=== PATIENT | male | born 1985 | race Caucasian/White ===

== ENCOUNTER 2016-12-14 10:36 | Observation (INO) | payer MEDICAID ==
[2016-12-14] MEDS ORDERED: LR 1,000 ML IV ONE (13:26)
[2016-12-14] MEDS ORDERED: LIDOCAINE 1% 2 ML INJ ID PRN (13:26)
[2016-12-14] MEDS ORDERED: BUPIVACAINE/EPI 0.25% 30 ML SDV ONE (14:00)
[2016-12-14] MEDS ORDERED: MIDAZOLAM 2 MG/2 ML VIAL ONE (14:05)
[2016-12-14] MEDS ORDERED: MIDAZOLAM 2 MG/2 ML VIAL IVP ONE (14:08)
--- NOTE | 2016-12-14 14:11 | PDANEPAE ---
ANE Past Medical History - Cardiovascular History Hx Hypertension: No Hx Arrhythmias: No Hx Chest Pain: No Hx Coronary Artery / Peripheral Vascular Disease: No Hx CHF / Valvular Disease: No Hx Palpitations: No - Pulmonary History Hx COPD: No Hx Asthma/Reactive Airway Disease: No Hx Recent Upper Respiratory Infection: No Hx Oxygen in Use at Home: No Hx Sleep Apnea: Yes Sleep Apnea Screening Result - Last Documented: Positive Pulmonary History Comment: james positive does not use cpap or o2 - Neurologic History Hx Cerebrovascular Accident: No Hx Seizures: No Hx Dementia: No - Endocrine History Hx Diabetes: No - Renal History Hx Renal Disorders: No - Liver History Hx Hepatic Disorders: No - Neurological & Psychiatric Hx Hx Neurological and Psychiatric Disorders: Yes Neurological / Psychiatric History Comment: anxiety - Cancer History Hx Cancer: No - Congenital Disorder History Hx Congenital Disorders: No - GI History Hx Gastrointestinal Disorders: No - Other Health History Other Health History: none - Chronic Pain History Chronic Pain: No - Surgical History Prior Surgeries: hydrocele repair. unknown surgery when he was younger ANE Review of Systems - Exercise capacity METS (RN): 4 METS ANE Patient History - Allergies Allergies/Adverse Reactions: No Known Allergies Allergy (Verified 12/12/16 13:01) - Home Medications Home Medications: ALPRAZolam [Xanax 0.5 MG (*)] 0.5 mg PO HS 11/23/16 [Last Taken 12/13/16 23:00] Herbals/Supplements -Info Only 1 ea PO DAILY 11/23/16 [Last Taken 12/13/16] Ibuprofen [Motrin (*)] 200 mg PO DAILY PRN 11/23/16 [Last Taken 3 Weeks Ago] - NPO status NPO Since - Liquids (Date): 12/14/16 NPO Since - Liquids (Time): 11:30 NPO Since - Solids (Date): 12/13/16 NPO Since - Solids (Time): 19:00 - Smoking Hx Smoking Status: Light smoker - Family Anes Hx Family Hx Anesthesia Complications: none ANE Labs/Vital Signs - Vital Signs Blood Pressure: 140/92 Heart Rate: 88 Respiratory Rate: 20 O2 Sat (%): 94 Height: 185.42 cm Weight: 85.275 kg ANE Physical Exam - Airway Neck exam: FROM Mallampati Score: Class 2 Mouth exam: poor dentition (Chipped lower right incisor) - Pulmonary Pulmonary: no respiratory distress, no rales or rhonchi - Cardiovascular Cardiovascular: regular rate and rhythym, no murmur, rub, or gallop - ASA Status ASA Status: II ANE Anesthesia Plan Anesthesia Plan: general endotracheal anesthesia
[2016-12-14] MEDS ORDERED: HYDROmorphONE/DILAUDID 2 MG/ML INJ ONE (14:22)
[2016-12-14] MEDS ORDERED: fentaNYL 100 MCG/2 ML INJ ONE ×2 (14:22→16:18)
--- NOTE | 2016-12-14 14:22 | PDGENHP ---
History & Physical Chief Complaint: HUONG History of Present Illness: Adenotonsillar hypertrophy, lingual tonsilar hypertrophy, HUONG Pertinent Past, Social, Family History: Reviewed Relevant Physical Exam: Alert, NAD. Patent Nares. Tonsular hypertrophy. Neck supple Cardiorespiratory Assessment: RR. CTA. Good for UPPP, BOT, Adenoidectomy
[2016-12-14] MEDS ORDERED: LIDOCAINE 2% 5 ML SDV ONE (14:23)
[2016-12-14] MEDS ORDERED: SUCCINYLCHOLINE CHLORIDE*ANESTHESIA ONLY*200 MG/10 ML SYR IVP ONE (14:23)
[2016-12-14] MEDS ORDERED: DEXAMETHASONE 4 MG/ML VIAL ONE ×3 (14:23→14:35)
[2016-12-14] MEDS ORDERED: PROPOFOL 200 MG/20 ML VIAL ONE ×2 (14:23→14:37)
[2016-12-14] MEDS ORDERED: ONDANSETRON 4 MG/2 ML VIAL ONE (14:23)
--- NOTE | 2016-12-14 16:12 | POSTOPPROG ---
Post Op Note Date of Operation: 12/14/16 Surgeon: Judson Krishnamurthy Anesthesiologist: Kevin Anesthesia: GET(General Endotracheal) Pre-op Diagnosis: HUONG Post-op Diagnosis: HUONG Indication: HUONG Procedure: Lingual tonsillectomy, UPPP, tonsillectomy, adenoidectomy Findings: Ling tons hyperplasia, Adenotonsillar hypertrophy Inf/Abcess present in the surg proc area at time of surgery?: No Depth: Deep Incisional (Fascial) EBL: Minimal Complications: NONE Specimen(s): Tonsils
[2016-12-14] MEDS ORDERED: ONDANSETRON 4 MG/2 ML VIAL IVP PRN ×2 (16:13→16:17)
[2016-12-14] MEDS ORDERED: ENALAPRILAT DIHYDRATE 1.25 MG/ML VIAL IVP PRN (16:17)
[2016-12-14] MEDS ORDERED: NALOXONE HCL 0.4 MG/ML INJ IVP PRN (16:17)
[2016-12-14] MEDS ORDERED: HYDROmorphONE/DILAUDID 1 MG/ML SYR IVP PRN (16:17)
[2016-12-14] MEDS ORDERED: LR 500 ML IV PRN (16:17)
[2016-12-14] MEDS ORDERED: OXYCODONE/APAP 5/325 TAB PO PRN (16:17)
[2016-12-14] MEDS ORDERED: LABETALOL HCL 50 MG/10 ML SYR IVP PRN (16:17)
[2016-12-14] MEDS ORDERED: PROMETHAZINE HCL 25 MG/ML INJ IVP PRN (16:17)
[2016-12-14] MEDS ORDERED: HYDROCODONE/APAP 5/325 TAB PO PRN (16:17)
[2016-12-14] MEDS ORDERED: MEPERIDINE 25 MG/ML SYR IVP PRN (16:17)
[2016-12-14] MEDS ORDERED: ACETAMINOPHEN 500 MG TAB PO PRN (16:17)
[2016-12-14] MEDS ORDERED: HYDROmorphONE/DILAUDID 1 MG/ML SYR ONE (16:18)
[2016-12-14] MEDS: fentaNYL 100 MCG/2 ML INJ IVP PRN ×2 (16:20→16:34)
--- NOTE | 2016-12-14 16:23 | POSTANESTH ---
Post Anesthetic Evaluation Cardiovascular Status: Tx Hyper/Hypo-tension Respiratory Status: Normal, Stable, Similar to Pre-op Cond. Level of Consciousness/Mental Status: Can Participate in Eval, Mildly Sleepy, Arousable Pain Control: Inadeq, Add Tx Required (Resting, but reports pain when asked.) Nausea/Vomiting Control: Adequate, Prn Tx Ordered Complications Possibly Related to Anesthesia: None Noted
[2016-12-14] MEDS: D5W 1/2 NS 1,000 ML IV SCH (18:12)
[2016-12-14] MEDS: HYDROCOD/APAP 7.5/325 IN 15ML UDCUP PO PRN ×2 (19:44→23:36)
[2016-12-14] MEDS: HEPARIN 5,000 UNIT/0.5 ML SYR SC SCH (21:53)
[2016-12-15] MEDS ORDERED: ALPRAZolam 0.25 MG TAB PO SCH ×2 (00:45→21:00)
[2016-12-15] MEDS: HYDROCOD/APAP 7.5/325 IN 15ML UDCUP PO PRN ×3 (03:49→12:48)
[2016-12-15] MEDS: D5W 1/2 NS 1,000 ML IV SCH (03:52)
[2016-12-15] MEDS: HEPARIN 5,000 UNIT/0.5 ML SYR SC SCH (06:39)
--- NOTE | 2016-12-15 07:10 | SOAPPROG ---
SOAP Progress Note Assessment/Plan: Assessment: S/P 12/14/16 UPPP, BOT coblation, adenoidectomy. Doing well with good post op findings. Plan: OK for home today. No bending, lifting, straining for 1 week. Soft diet for 2 weeks. Hydration! See printed discharge instructions. 12/15/16 07:06 Subjective: Complaints of pain but otherwise doing well. Tolerating PO fluids. Objective: Vital Signs Temp Pulse Resp BP Pulse Ox 36.6 C 66 14 125/97 H 99 12/15/16 03:57 12/15/16 03:57 12/15/16 03:57 12/15/16 03:57 12/15/16 03:57 12/14/16 12/15/16 12/16/16 05:59 05:59 05:59 Intake Total 990 Output Total 1030 Balance -40 Physical Exam - Physical Exam General Appearance: alert, no apparent distress EENT: PERRL/EOMI, other (Voice good, mild hot potato.), No pharynx normal (Soft palate incisions intact. Tonsillar fossae clear. ), No rhinorrhea Neck: supple, normal inspection Respiratory: No respiratory distress, No accessory muscle use, No stridor Skin: normal color, warm/dry Neuro/Psych: normal mood/affect ICD10 Worksheet Patient Problems: Problems Problem Status Onset HUONG (obstructive sleep apnea) Acute Post-op pain Acute - ICD10 Problem Qualifiers (1) HUONG (obstructive sleep apnea) (2) Post-op pain
[2016-12-15] MEDS ORDERED: DEXAMETHASONE 10 MG/ML VIAL IVP ONE (07:15)
[2016-12-15 08:18] VITALS: PULSE 70
[2016-12-15 11:27] VITALS: BP 126/86; RESP 18; TEMP 98.1; O2SAT 96
[2016-12-15] MEDS ORDERED: PNEUMOCOCCAL 0.5ML VACCINE VIAL IM ONE (11:38)
== END 2016-12-15 12:55 | disposition home or self-care (01) ==
LOC: F3N 13:13 → F3E 17:34
PROVIDERS: ADMIT Otolaryngology; ATTEND Otolaryngology
PROC: 0CQ Mouth and Throat, Repair (ICD-10-PCS; principal; 2016-12-14 14:30)
PROC: 0CQM0ZZ Repair Pharynx, Open Approach (ICD-10-PCS; principal; 2016-12-14 14:30)
PROC: 0CTQXZZ Resection of Adenoids, External Approach (ICD-10-PCS; principal; 2016-12-14 14:30)
PROC: 0CQ Mouth and Throat, Repair (ICD-10-PCS; principal; 2016-12-14 14:30)
PROC: 0CTPXZZ Resection of Tonsils, External Approach (ICD-10-PCS; principal; 2016-12-14 14:30)
DX: G47.33 Obstructive sleep apnea (adult) (pediatric) (principal); J35.3 Hypertrophy of tonsils with hypertrophy of adenoids; Z23 Encounter for immunization
CPT/HCPCS: 42145; 90471; G0378; G0009; J0330; J1100; J1170; J2250; J2405; J2704; J3010

== ENCOUNTER 2016-12-19 18:14 | Emergency (ER) | payer MEDICAID ==
[2016-12-19 18:20] VITALS: BP 120/90; PULSE 98; RESP 18; TEMP 98.4; O2SAT 96
== END 2016-12-19 18:45 | disposition left against medical advice (07) ==
DX: Z53.21 Procedure and treatment not carried out due to patient leaving prior to being seen by health care provider (principal)